=== PATIENT | male | born 1930 | race Caucasian/White ===

== ENCOUNTER → 2017-08-21 | Outpatient (CLI) | payer MEDICARE ==
[2017-08-21 16:53] LABS: Basophils % (A) 0 %; Eosinophils # (A) 0.6 k/uL (0-0.7); Eosinophils % (A) 6 %; HCT 40.5 % (39.0-53.0); Lymphocytes # (A) 2.3 k/uL (1.0-4.8); Lymphocytes % (A) 24 %; MCH 33.3 pg (25.0-35.0); MCHC 34.2 g/dL (31.0-37.0); MCV 97.5 fL (80.0-100.0); Mean Platelet Volume 6.7; Monocytes # (A) 0.5 k/uL (0-1.0); Monocytes % (A) 5 %; Neutrophils # (A) 6.1 k/uL (1.3-7.7); Neutrophils % (A) 63 %; Platelet Count 342 k/uL (150-450); Poikilocytosis Slight; RBC 4.15 m/uL (4.30-5.90); RDW 14.5 % (11.5-15.5); WBC 9.7 k/uL (3.8-10.6)
[2017-08-21 16:57] LABS: HGB 13.8 gm/dL (13.0-17.5)
== END | disposition home or self-care (01) ==
LOC: LABPAT 15:56
PROVIDERS: ATTEND Surgery
DX: Z01.818 Encounter for other preprocedural examination (principal); Z01.812 Encounter for preprocedural laboratory examination; D64.9 Anemia, unspecified; K43.2 Incisional hernia without obstruction or gangrene; F17.200 Nicotine dependence, unspecified, uncomplicated
CPT/HCPCS: 36415; 85025; 86850; 86900; 86901; 93005

== ENCOUNTER 2017-08-27 07:41 | Day surgery (SDC) | payer MEDICARE ==
[2017-08-22 09:01] VITALS: BMI 27.4
[~2017-08-27 07:41] MED LIST: HEPARIN SODIUM,PORCINE 5,000 UNIT/ML 1 ML VIAL SQ ONE; LACTATED RINGERS 1,000 ML IV SCH; LIDOCAINE 1% 20 ML VIAL (10MG/ML) FOR IV START INTRADERMA PRN; MORPHINE SULFATE 2 MG/ML SYRINGE IV PRN; ONDANSETRON ODT 4 MG TAB PO ONE; ceFAZolin IN SWFI 2 GM/20 ML SYRINGE IVP ONE
[2017-08-27] MEDS ORDERED: LACTATED RINGERS 1,000 ML IV ONE ×2 (09:10→09:59)
[2017-08-27] MEDS ORDERED: DEXAMETHASONE SOD PHOS (MDV) 100 MG/10 ML VIAL IVP ONE (09:11)
[2017-08-27] MEDS ORDERED: ONDANSETRON 4 MG/2 ML VIAL IVP ONE (09:11)
--- NOTE | 2017-08-27 09:13 | P.GSHP ---
History of Present Illness H&P Date: 08/27/17 Chief Complaint: Incisional hernia This is a 6-year-old male who's had problems with a recurrent recurrent incarcerated incisional hernia. Patient had a recent hospital admission with bowel obstruction. Patient presents today for laparoscopic robotic-assisted repair. Past Medical History Past Medical History: CVA/TIA, Hypertension, Neurologic Disorder Additional Past Medical History / Comment(s): HX POLIO, SISTER STATES TOLD HE HAS HAD 3 STROKES BUT PT WAS UNAWARE- NO PROBLEMS WITH AMBULATION. , PT WAS HOSPITALIZED 08/12-08/15/17 FOR NAUSEA, VOMITING & DIARRHEA., ON LIQUID AND SOFT FOODS SINCE DISCHARGED., INCISIONAL HERNIA., PT IS UNABLE TO READ OR WRITE ., LIVES ALONE. History of Any Multi-Drug Resistant Organisms: None Reported Past Surgical History: Cholecystectomy Additional Past Surgical History / Comment(s): EXPLORATORY LAP TO CHECK BOWEL ( 03/2014), Past Anesthesia/Blood Transfusion Reactions: No Reported Reaction Additional Past Anesthesia/Blood Transfusion Reaction / Comment(s): . Past Psychological History: Depression Additional Psychological History / Comment(s): . Smoking Status: Never smoker Past Alcohol Use History: None Reported Past Drug Use History: None Reported - Past Family History Father Family Medical History: CVA/TIA Mother Family Medical History: Myocardial Infarction ([place]) Medications and Allergies Home Medications Medication Instructions Recorded Confirmed Type Citalopram Hydrobromide [CeleXA] 20 mg PO DAILY 04/15/14 08/22/17 History Nitroglycerin Extended Release 6.5 mg PO TID 04/15/14 08/22/17 History [Nitro-Bid] Simvastatin [Zocor] 20 mg PO HS 04/15/14 08/22/17 History Multivitamins, Thera [Multivitamin 1 tab PO DAILY 08/12/17 08/22/17 History (formulary)] Amoxicillin/Potassium Clav 1 each PO Q12HR #14 tab 08/15/17 08/22/17 Rx [Augmentin 875-125 Tablet] Clopidogrel [Plavix] 75 mg PO DAILY #30 tab 08/15/17 08/22/17 Rx Famotidine [Pepcid] 20 mg PO DAILY #30 tablet 08/15/17 08/22/17 Rx Aspirin [Adult Low Dose Aspirin EC] 81 mg PO DAILY 08/22/17 08/22/17 History Allergies Allergy/AdvReac Type Severity Reaction Status Date / Time No Known Allergies Allergy Verified 08/22/17 08:40 Surgical - Exam Vital Signs Temp Pulse Resp BP Pulse Ox 97.8 F 62 18 124/69 98 08/27/17 09:07 08/27/17 09:07 08/27/17 09:07 08/27/17 09:07 08/27/17 09:07 - General well developed, no distress - Eyes PERRL - ENT normal pinna - Neck no masses - Respiratory normal expansion - Cardiovascular Rhythm: regular - Abdomen 5 cm incarcerated incisional hernia Abdomen: soft, non tender Assessment and Plan Assessment: Incarcerated incisional hernia. We'll perform laparoscopic robotic system repair.
[2017-08-27] MEDS ORDERED: SUCCINYLCHOLINE CHLORIDE 100 MG/5 ML SYR IV ONE (09:28)
[2017-08-27] MEDS ORDERED: ePHEDrine SULFATE/0.9% NACL/PF 50 MG/5 ML SYRINGE IV ONE (09:28)
[2017-08-27] MEDS ORDERED: GLYCOPYRROLATE 0.2 MG/ML 2 ML VIAL ONE (09:28)
[2017-08-27] MEDS ORDERED: PROPOFOL 10 MG/ML 20 ML VIAL IV ONE (09:28)
[2017-08-27] MEDS ORDERED: ROCURONIUM BROMIDE 10 MG/ML 10 ML VIAL IV ONE (09:28)
[2017-08-27] MEDS ORDERED: fentaNYL (PF) 50 MCG/ML 2 ML AMP ONE (09:28)
[2017-08-27] MEDS ORDERED: LIDOCAINE 1% INJ 10MG/ML (20 ML MDV) ONE (09:28)
[2017-08-27] MEDS ORDERED: NEOSTIGMINE 1 MG/ML 10 ML VIAL ONE (09:28)
[2017-08-27] MEDS ORDERED: BUPIVACAINE (PF) 0.25% 30 ML VIAL SQ ONE (09:50)
[2017-08-27] MEDS ORDERED: LIDOCAINE 1%-EPI 1:100,000 30 ML VIAL SQ ONE (10:35)
[2017-08-27 11:19] VITALS: TEMP 96.8
--- NOTE | 2017-08-27 11:27 | P.OP ---
Date of Procedure: 08/27/17 Preoperative Diagnosis: Incarcerated incisional hernia Postoperative Diagnosis: Incarcerated incisional hernia Procedure(s) Performed: Laparoscopic robotic-assisted repair of incarcerated incisional hernia Anesthesia: MATEUS Surgeon: Von Forman Estimated Blood Loss (ml): 20 Pathology: none sent Condition: stable Disposition: PACU Description of Procedure: The patient was placed on the operating table in the supine position. He received general anesthesia. His abdomen was prepped and draped usual fashion. Using a 5 mm optical trocar under direct visualization the peritoneal cavity was entered in the left upper quadrant. The abdomen was then insufflated. The laparoscope was placed back into the perineal cavity. Next a 8 mm robotic trocar was placed in the left lower quadrant and a 12 mm robotic trocar was placed in the left lateral position. The original 5 mm trocar was exchanged for a 8 mm robotic trocar. The patient's placed in the left side up position. And the patient was docked to the robot. The incisional hernia was visualized. Using hook cautery the peritoneum over the incisional hernia was excised. Using metastases months scissors the incarcerated small bowel was dissected free from the hernia. The fascial opening was repaired using 0V LOC suture. Next a piece of 10 x [address] light [address] mesh was placed into the. Cavity and secured with 2 OV lock suture. The patient was undocked the robot. The needles were retrieved. The fascia of the 12 mm trocar site was closed with 0 Ethibond suture. Skin was closed interrupted 3-0 Monocryl suture. Dermabond dressings was applied. Patient tolerated procedure well and was sent to recovery room stable condition.
[2017-08-27 11:59] VITALS: RESP 16
[2017-08-27 12:25] VITALS: BP 125/71; PULSE 94
== END 2017-08-27 13:03 | disposition home or self-care (01) ==
LOC: OR 07:41
PROVIDERS: ATTEND Surgery
DX: K43.0 Incisional hernia with obstruction, without gangrene (principal); I10 Essential (primary) hypertension; F32.9 Major depressive disorder, single episode, unspecified; I25.10 Atherosclerotic heart disease of native coronary artery without angina pectoris; Z86.73 Personal history of transient ischemic attack (TIA), and cerebral infarction without residual deficits; Z79.02 Long term (current) use of antithrombotics/antiplatelets; Z79.82 Long term (current) use of aspirin; Z79.899 Other long term (current) drug therapy
CPT/HCPCS: 49655; C1781; J1644; J2710; J2405; J2001; J3010; J1100; J0330; J2704; J0690; 86850; 86900; 86901

== ENCOUNTER 2020-01-22 12:36 | Observation (INO) | payer MEDICARE ==
[2020-01-22] MEDS ORDERED: SODIUM CHLORIDE 0.9% 1,000 ML IV STA (12:49)
--- NOTE | 2020-01-22 13:07 | ED ---
Weakness HPI - General Chief complaint: Neuro Symptoms/Deficit Stated complaint: Poss CVA Time Seen by Provider: 01/22/20 12:43 Source: patient, RN notes reviewed, old records reviewed Mode of arrival: ambulatory Limitations: no limitations - History of Present Illness Initial comments: This is a 9-year-old male presented today for evaluation, patient Dese for evaluation regards to weakness generalized weakness decreased activity level for last 2-3 days patient is very fatigued today. Afebrile, appetite is been mildly diminished. No recent change in medications. Patient is complaining of weakness in both legs and both arms MD Complaint: generalized weakness, lack of energy -: days(s) Location: generalized Severity: mild Severity scale (1-10): 3 Quality: constant Consistency: constant Improves with: none Worsens with: none Context: history of similar Associated Symptoms: denies other symptoms, loss of appetite, myalgias - Related Data Home Medications Medication Instructions Recorded Confirmed Citalopram Hydrobromide [CeleXA] 20 mg PO DAILY 04/15/14 08/22/17 Nitroglycerin Extended Release 6.5 mg PO TID 04/15/14 08/22/17 [Nitro-Bid] Simvastatin [Zocor] 20 mg PO HS 04/15/14 08/22/17 Multivitamins, Thera [Multivitamin 1 tab PO DAILY 08/12/17 08/22/17 (formulary)] Aspirin [Adult Low Dose Aspirin EC] 81 mg PO DAILY 08/22/17 08/22/17 Previous Rx's Medication Instructions Recorded Amoxicillin/Potassium Clav 1 each PO Q12HR #14 tab 08/15/17 [Augmentin 875-125 Tablet] Clopidogrel [Plavix] 75 mg PO DAILY #30 tab 08/15/17 Famotidine [Pepcid] 20 mg PO DAILY #30 tablet 08/15/17 Docusate [Colace] 100 mg PO BID #20 capsule 08/27/17 HYDROcodone/APAP 7.5-325MG [[place] 1 each PO Q4H PRN #30 tab 08/27/17 7.5] Allergies Allergy/AdvReac Type Severity Reaction Status Date / Time No Known Allergies Allergy Verified 01/22/20 12:38 Review of Systems ROS Statement: Those systems with pertinent positive or pertinent negative responses have been documented in the HPI. ROS Other: All systems not noted in ROS Statement are negative. Past Medical History Past Medical History: Hypertension, Neurologic Disorder Additional Past Medical History / Comment(s): polio History of Any Multi-Drug Resistant Organisms: None Reported Past Surgical History: Cholecystectomy Additional Past Surgical History / Comment(s): bowel x2 Past Anesthesia/Blood Transfusion Reactions: No Reported Reaction Additional Past Anesthesia/Blood Transfusion Reaction / Comment(s): pt taking nitro bid Past Psychological History: No Psychological Hx Reported Smoking Status: Never smoker Past Alcohol Use History: None Reported Past Drug Use History: None Reported - Past Family History Father Family Medical History: CVA/TIA Mother Family Medical History: Myocardial Infarction ([place]) General Exam Limitations: no limitations General appearance: alert, in no apparent distress Head exam: Present: atraumatic, normocephalic, normal inspection Eye exam: Present: normal appearance, PERRL, EOMI. Absent: scleral icterus, conjunctival injection, periorbital swelling ENT exam: Present: normal exam, mucous membranes moist Neck exam: Present: normal inspection. Absent: tenderness, meningismus, lymphadenopathy Respiratory exam: Present: normal lung sounds bilaterally. Absent: respiratory distress, wheezes, rales, rhonchi, stridor Cardiovascular Exam: Present: regular rate, normal rhythm, normal heart sounds. Absent: systolic murmur, diastolic murmur, rubs, gallop, clicks GI/Abdominal exam: Present: soft, normal bowel sounds. Absent: distended, tenderness, guarding, rebound, rigid Extremities exam: Present: normal inspection, full ROM, normal capillary refill. Absent: tenderness, pedal edema, joint swelling, calf tenderness Back exam: Present: normal inspection Neurological exam: Present: alert, oriented X3, CN II-XII intact Psychiatric exam: Present: normal affect, normal mood Skin exam: Present: warm, dry, intact, normal color. Absent: rash Course Vital Signs 01/22/20 01/22/20 01/22/20 12:39 13:07 14:44 Temperature 97.6 F Pulse Rate 103 H 87 80 Respiratory 18 18 18 Rate Blood Pressure 129/71 121/67 O2 Sat by Pulse 96 100 Oximetry 01/22/20 14:59 Temperature Pulse Rate 86 Respiratory 18 Rate Blood Pressure 121/67 O2 Sat by Pulse 99 Oximetry - Reevaluation(s) Reevaluation #1: 09/26/20 13:44 Medical record is reviewed Reevaluation #2: 01/22/20 15:08 Patient is diminished urine output here in the ER despite IV hydration Reevaluation #3: 01/22/20 15:08 Patient informed family informed results, questions answered - Consultations Consultation #1: Spoke with Dr. Jem mckeon for admission EKG Findings - EKG Comments: EKG Findings:: EKG shows NSR 93 IL 134 QRS 82 QTc 452 Medical Decision Making - Medical Decision Making 89 male DF for evaluation of weakness, profound weakness and dehydration here in the ER. No significant acute findings. Patient be admitted for hydration, PTOT - Lab Data Result diagrams: 01/22/20 12:55 01/22/20 12:55 Lab Results 01/22/20 01/22/20 01/22/20 Range/Units 12:55 12:55 12:55 WBC 11.2 H (3.8-10.6) k/uL RBC 4.80 (4.30-5.90) m/uL Hgb 15.3 (13.0-17.5) gm/dL Hct 46.3 (39.0-53.0) % MCV 96.6 (80.0-100.0) fL MCH 31.9 (25.0-35.0) pg MCHC 33.0 (31.0-37.0) g/dL RDW 13.3 (11.5-15.5) % Plt Count 351 (150-450) k/uL Neutrophils % 74 % Lymphocytes % 15 % Monocytes % 6 % Eosinophils % 3 % Basophils % 1 % Neutrophils # 8.3 H (1.3-7.7) k/uL Lymphocytes # 1.7 (1.0-4.8) k/uL Monocytes # 0.7 (0-1.0) k/uL Eosinophils # 0.3 (0-0.7) k/uL Basophils # 0.1 (0-0.2) k/uL PT 10.0 (9.0-12.0) sec INR 1.0 (<1.2) APTT 22.7 (22.0-30.0) sec Sodium 134 L (137-145) mmol/L Potassium 4.8 (3.5-5.1) mmol/L Chloride 99 (98-107) mmol/L Carbon Dioxide 23 (22-30) mmol/L Anion Gap 12 mmol/L BUN 21 H (9-20) mg/dL Creatinine 1.12 (0.66-1.25) mg/dL Est GFR (CKD-EPI)AfAm 67 (>60 ml/min/1.73 sqM) Est GFR (CKD-EPI)NonAf 58 (>60 ml/min/1.73 sqM) Glucose 114 H (74-99) mg/dL Plasma Lactic Acid [place] (0.7-2.0) mmol/L Calcium 9.2 (8.4-10.2) mg/dL Phosphorus 3.9 (2.5-4.5) mg/dL Magnesium 2.0 (1.6-2.3) mg/dL Total Bilirubin 1.1 (0.2-1.3) mg/dL AST 46 (17-59) U/L ALT 27 (4-49) U/L Alkaline Phosphatase 137 H (38-126) U/L Creatine Kinase 61 (55-170) U/L Troponin I (0.000-0.034) ng/mL NT-Pro-B Natriuret Pep pg/mL Total Protein 7.9 (6.3-8.2) g/dL Albumin 4.4 (3.5-5.0) g/dL 01/22/20 01/22/20 01/22/20 Range/Units 12:55 12:55 12:55 WBC (3.8-10.6) k/uL RBC (4.30-5.90) m/uL Hgb (13.0-17.5) gm/dL Hct (39.0-53.0) % MCV (80.0-100.0) fL MCH (25.0-35.0) pg MCHC (31.0-37.0) g/dL RDW (11.5-15.5) % Plt Count (150-450) k/uL Neutrophils % % Lymphocytes % % Monocytes % % Eosinophils % % Basophils % % Neutrophils # (1.3-7.7) k/uL Lymphocytes # (1.0-4.8) k/uL Monocytes # (0-1.0) k/uL Eosinophils # (0-0.7) k/uL Basophils # (0-0.2) k/uL PT (9.0-12.0) sec INR (<1.2) APTT (22.0-30.0) sec Sodium (137-145) mmol/L Potassium (3.5-5.1) mmol/L Chloride (98-107) mmol/L Carbon Dioxide (22-30) mmol/L Anion Gap mmol/L BUN (9-20) mg/dL Creatinine (0.66-1.25) mg/dL Est GFR (CKD-EPI)AfAm (>60 ml/min/1.73 sqM) Est GFR (CKD-EPI)NonAf (>60 ml/min/1.73 sqM) Glucose (74-99) mg/dL Plasma Lactic Acid [place] 1.9 (0.7-2.0) mmol/L Calcium (8.4-10.2) mg/dL Phosphorus (2.5-4.5) mg/dL Magnesium (1.6-2.3) mg/dL Total Bilirubin (0.2-1.3) mg/dL AST (17-59) U/L ALT (4-49) U/L Alkaline Phosphatase (38-126) U/L Creatine Kinase (55-170) U/L Troponin I <0.012 (0.000-0.034) ng/mL NT-Pro-B Natriuret Pep 95 pg/mL Total Protein (6.3-8.2) g/dL Albumin (3.5-5.0) g/dL - Radiology Data Radiology results: report reviewed (CT brain and chest x-ray negative for acute disease), image reviewed Disposition Clinical Impression: Altered mental status, Weakness, Dehydration Disposition: ADMITTED IP TO THIS [facility] Condition: Fair Is patient prescribed a controlled substance at d/c from ED?: No Referrals: Angel Del Valle MD [Primary Care Provider] - 1-2 days
[2020-01-22 13:17] LABS: Basophils # (A) 0.1 k/uL (0-0.2); Basophils % (A) 1 %; Eosinophils # (A) 0.3 k/uL (0-0.7); Eosinophils % (A) 3 %; HCT 46.3 % (39.0-53.0); HGB 15.3 gm/dL (13.0-17.5); Lymphocytes # (A) 1.7 k/uL (1.0-4.8); Lymphocytes % (A) 15 %; MCH 31.9 pg (25.0-35.0); MCV 96.6 fL (80.0-100.0); Mean Platelet Volume 6.6; Monocytes # (A) 0.7 k/uL (0-1.0); Monocytes % (A) 6 %; Neutrophils # (A) 8.3 k/uL (1.3-7.7); Neutrophils % (A) 74 %; Platelet Count 351 k/uL (150-450); RDW 13.3 % (11.5-15.5); WBC 11.2 k/uL (3.8-10.6)
[2020-01-22 13:22] LABS: Partial Thromboplastin Time 22.7 sec (22.0-30.0)
[2020-01-22 13:27] LABS: Albumin 4.4 g/dL (3.5-5.0); Calcium 9.2 mg/dL (8.4-10.2); Phosphorus 3.9 mg/dL (2.5-4.5); Potassium 4.8 mmol/L (3.5-5.1); Total Bilirubin 1.1 mg/dL (0.2-1.3); Total Protein 7.9 g/dL (6.3-8.2)
--- NOTE | 2020-01-22 13:50 | XR ---
EXAMINATION TYPE: XR chest 2V DATE OF EXAM: 01/22/2020 COMPARISON: Chest x-ray August 12, 2017. HISTORY: Weakness. TECHNIQUE: Frontal and lateral views of the chest are obtained. FINDINGS: Low lung volumes are present. There is more prominent cardiomegaly with increased intersti tial prominence bilaterally. No pleural effusion or pneumothorax is evident. The osseous structures are demineralized. IMPRESSION: More prominent cardiomegaly and interstitial prominence suggesting mild to moderate inte rstitial edema. Suspect CHF exacerbation. Correlate clinically.
[2020-01-22] MEDS ORDERED: SODIUM CHLORIDE 0.9% 2,000 ML IV ONE (15:01)
[2020-01-22] MEDS ORDERED: SODIUM CHLORIDE 0.9% 1,000 ML IV ONE (15:07)
--- NOTE | 2020-01-22 15:28 | CT ---
EXAMINATION TYPE: CT brain wo con DATE OF EXAM: 01/22/2020 COMPARISON: None HISTORY: altered mental status CT DLP: 1099.4 mGycm Automated exposure control for dose reduction was used. There is cerebral atrophy. There is no mass effect nor midline shift. There is no sign of intracrania l hemorrhage. Calvarium is intact. IMPRESSION: Cerebral atrophy more noticeable in the right frontoparietal region. No acute intracranial abnormalit y. No change.
[2020-01-22 16:56] LABS: Appearance,Urine Clear (Clear); Bilirubin,Urine Negative (Negative); Blood,Urine Trace (Negative); Color,Urine Yellow; Glucose,Urine (UA) Negative (Negative); Ketones,Urine 1+ (Negative); Leukocyte Esterase,Urine Negative (Negative); Mucus,Urine Rare /hpf; Nitrite,Urine Negative (Negative); PH, Urine 6.5 (5.0-8.0); Protein,Urine Negative (Negative); RBC,Urine 6 /hpf (0-5); Specific Gravity,Urine 1.007 (1.001-1.035); Urobilinogen,Urine <2.0 mg/dL (<2.0); WBC,Urine 3 /hpf (0-5)
[2020-01-22] MEDS: NITROGLYCERIN EXTENDED RELEASE 6.5 MG CAPSULE.ER PO SCH (21:08)
[2020-01-23] MEDS ORDERED: ATORVASTATIN 10 MG TAB PO SCH (09:00)
[2020-01-23] MEDS: amLODIPine 5 MG TAB PO SCH (09:03)
[2020-01-23] MEDS: ASPIRIN 81 MG PO SCH (09:03)
[2020-01-23] MEDS: MULTIVITAMINS, THERA 1 EACH TAB PO SCH (09:04)
[2020-01-23] MEDS: CLOPIDOGREL 75 MG TAB PO SCH (09:04)
[2020-01-23] MEDS: NITROGLYCERIN EXTENDED RELEASE 6.5 MG CAPSULE.ER PO SCH ×3 (09:04→20:27)
[2020-01-23] MEDS: CITALOPRAM HYDROBROMIDE 20 MG TAB PO SCH (09:04)
[2020-01-23 10:28] LABS: Basophils % (A) 0 %; Eosinophils # (A) 0.3 k/uL (0-0.7); Eosinophils % (A) 3 %; HCT 38.9 % (39.0-53.0); HGB 12.9 gm/dL (13.0-17.5); Lymphocytes # (A) 0.9 k/uL (1.0-4.8); Lymphocytes % (A) 10 %; MCH 31.9 pg (25.0-35.0); MCHC 33.3 g/dL (31.0-37.0); MCV 95.9 fL (80.0-100.0); Mean Platelet Volume 6.9; Monocytes # (A) 0.5 k/uL (0-1.0); Monocytes % (A) 6 %; Neutrophils # (A) 7.4 k/uL (1.3-7.7); Neutrophils % (A) 80 %; Platelet Count 290 k/uL (150-450); RBC 4.05 m/uL (4.30-5.90); RDW 13.3 % (11.5-15.5); WBC 9.2 k/uL (3.8-10.6)
[2020-01-23 10:36] LABS: Albumin 3.2 g/dL (3.5-5.0); Calcium 8.3 mg/dL (8.4-10.2); Potassium 4.1 mmol/L (3.5-5.1); Total Bilirubin 0.7 mg/dL (0.2-1.3); Total Protein 6.1 g/dL (6.3-8.2)
--- NOTE | 2020-01-23 14:05 | P.HPIM ---
History of Present Illness H&P Date: 01/23/20 89 years old male patient of Dr. 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 It appears patient has been able to make his own decision but brother and sister helps make decision for the patient as it takes longer for the patient to process the information. Spoke to the sister in length over the phone, patient is functionally active and uses no aids like cane or weight walker at home. Patient sister has noted increased weakness in his right arm and right lower extremity and having difficulty making a fist or hold anything with his right hand. Patient is not able to provide a good history and no family members at bedside it is difficult to assess if patient has any remnant weakness from polio. On speaking to the sister it appears that polio had not affected any of his extremity and patient is very functionally independent at home. Family members coming intermittently to watch over him. Since patient was not able to come out of bed by himself the sister got suspicion and brought the patient to the ER. . He denies any difficulty with walking or any falls at home. On evaluation patient has a temp of 98.2 pulse 75 respiratory rate 17 and blood pressure 127/70 with oxygen saturation 96% on 2 L. On assessment of patient's blood work from yesterday patient had a leukocyte of 11.2 which improved to 9.2 today. Hemoglobin is 15.3 improved to 12.9 appears to be secondary to hemodilution. Platelets 351 improved to 90. Sodium was 134 decreased to 132. Creatinine was 1.12 elevated BUN of 21 improved to creatinine of 0.87. ProBNP was 273. UA was negative for any infection. Chest x-ray did show some congestion and infiltrates concerning for CHF exacerbation. Patient denies any coughing or shortness of breath and is currently on room air on examination. Patient did receive 2 L of IV fluid in the ER. Further IV fluids were discontinued to prevent overload of fluids. Due to concern of weakness in the right upper extremity neurology is consulted, MRI and MRA of the head or dered. Echocardiogram ordered brain CT done in the ER suggestive of cerebral atrophy more prominent in the right frontoparietal region with no acute intracranial change. Patient's sister is unaware why patient is on Plavix, states he had some confusion 4 years ago but no documented history of stroke present Review of Systems Constitutional: Denies chills, Denies fever, endorses lethargy, Denies poor appetite, Denies weight loss Eyes: denies decreased vision, denies diplopia, denies discharge, denies pain Ears: deny: decreased hearing Ears, nose, mouth and throat: Denies dental pain, Denies headache, Denies nasal discharge, Denies nose pain Cardiovascular: Denies chest pain, Denies decreased exercise tolerance, Denies edema, Denies high blood pressure, Denies irregular heart beat, Denies palpitations, Denies paroxysmal nocturnal dyspnea, Denies rapid heart beat, Denies shortness of breath Respiratory: Denies congestion, Denies cough, Denies cough with sputum, Denies dyspnea, Denies home oxygen, Denies wheezing Gastrointestinal: Denies abdominal pain, Denies change in bowel habits, Denies coffee ground emesis, Denies early satiety, Denies excessive gas, Denies heartburn, Denies hematemesis, Denies hematochezia, Denies loss of appetite, Denies nausea, Denies vomiting Genitourinary: Denies dysuria, Denies flank pain, Denies kidney stones, Denies menorrhagia, Denies urgency, Denies urinary frequency Musculoskeletal: Unsteady gait, Denies limitation of motion, Denies morning stiffness, Denies muscle cramps Integumentary: Denies rash, Denies wounds, Denies brittle nails, Denies change in hair/nails, Denies darkening of skin Neurological: Endorses balance difficulties, Denies change in speech, Denies double vision, Denies loss of vision, endorses motor disturbance, Denies numbness, Denies paralysis, Denies paresthesias, Denies seizures Psychiatric: Denies anxiety, Denies depression Endocrine: Denies excessive sweating, Denies excessive thirst, Denies high blood sugars, Denies palpitations Hematologic/Lymphatic: Denies easy bruising, Denies lymphadenopathy Past Medical History Past Medical History: CVA/TIA, Hypertension, Neurologic Disorder Additional Past Medical History / Comment(s): polio History of Any Multi-Drug Resistant Organisms: None Reported Past Surgical History: Cholecystectomy Additional Past Surgical History / Comment(s): bowel x2 Past Anesthesia/Blood Transfusion Reactions: No Reported Reaction Additional Past Anesthesia/Blood Transfusion Reaction / Comment(s): pt taking nitro bid Past Psychological History: No Psychological Hx Reported Additional Psychological History / Comment(s): Patient lives alone, sister visits in the morning, brother visits at night sister does grocery shopping for the patient Smoking Status: Never smoker Past Alcohol Use History: None Reported Past Drug Use History: None Reported - Past Family History Father Family Medical History: CVA/TIA Mother Family Medical History: Myocardial Infarction ([place]) Medications and Allergies Home Medications Medication Instructions Recorded Confirmed Type Citalopram Hydrobromide [CeleXA] 20 mg PO DAILY 04/15/14 01/22/20 History Nitroglycerin Extended Release 6.5 mg PO TID 04/15/14 01/22/20 History [Nitro-Bid] Simvastatin [Zocor] 20 mg PO DAILY 04/15/14 01/22/20 History Multivitamins, Thera [Multivitamin 1 tab PO DAILY 08/12/17 01/22/20 History (formulary)] Clopidogrel [Plavix] 75 mg PO DAILY #30 tab 08/15/17 01/22/20 Rx Aspirin [Adult Low Dose Aspirin EC] 81 mg PO DAILY 08/22/17 01/22/20 History Docusate [Colace] 100 mg PO BID #20 capsule 08/27/17 01/22/20 Rx amLODIPine [Norvasc] 5 mg PO DAILY 01/22/20 01/22/20 History Allergies Allergy/AdvReac Type Severity Reaction Status Date / Time No Known Allergies Allergy Verified 01/22/20 16:10 Physical Exam Vitals: Vital Signs Temp Pulse Pulse Resp BP BP Pulse Ox 01/23/20 09:00 98.6 F 81 16 117/70 97 01/23/20 04:45 98.2 F 75 17 127/70 96 01/22/20 20:50 98 F 71 18 130/80 99 01/22/20 16:00 98 F 83 18 137/71 100 01/22/20 15:34 97.6 F 80 18 121/74 100 01/22/20 15:12 80 18 121/74 100 01/22/20 14:59 86 18 121/67 99 01/22/20 14:44 80 18 121/67 100 01/22/20 13:07 87 18 129/71 96 01/22/20 12:39 97.6 F 103 H 18 Intake and Output 01/22/20 01/23/20 01/23/20 22:59 06:59 14:59 Intake Total 400 200 Balance 400 200 Intake: Intake, IV Titration 400 Amount Sodium Chloride 0.9% 1, 400 000 ml @ 100 mls/hr IV . Q10H ONE Rx#:[id number] Oral 200 Other: Voiding Method Toilet Toilet Toilet Urinal Urinal Urinal Diaper Diaper Diaper Incontinent Incontinent Incontinent # Voids 1 1 1 # Bowel Movements 1 1 Weight 72.575 kg - Constitutional General appearance: Keeps his eyes down, answers yes to every question cooperative, no acute distress, obese - EENT Eyes: anicteric sclerae, PERRLA, normal appearance ENT: Hard of hearing - Neck Neck: no lymphadenopathy, normal ROM, no other, no rigidity, no stridor, no thyromegaly - Respiratory Respiratory: bilateral: CTA, negative: diminished, dullness, rales, rhonchi - Cardiovascular Rhythm: regular Heart sounds: normal: S1, S2 Abnormal Heart Sounds: 2 / 6 systolic murmur, no diastolic murmur, no rub, no S3 Gallop, no S4 Gallop, no click, no other - Gastrointestinal General gastrointestinal: normal bowel sounds, soft nontender - Integumentary Integumentary: no rash - Neurologic Neurologic: Facial droop noted on the right, hand inbound sales consultant reduced on the right, patient is unable to make a fist on the right, is able to lift on his extremity denies any numbness. - Musculoskeletal Musculoskeletal: gait unsteady , strength equal bilaterally - Psychiatric Psychiatric: A&O x's 1, unable to tell month or year, is able to tell where he is on multiple attempts .appropriate affect Results CBC & Chem 7: 01/23/20 10:01 01/23/20 10:01 Labs: Abnormal Lab Results - Last 24 Hours (Table) 01/22/20 01/22/20 01/22/20 Range/Units 12:55 12:55 16:40 WBC 11.2 H (3.8-10.6) k/uL Neutrophils # 8.3 H (1.3-7.7) k/uL Sodium 134 L (137-145) mmol/L BUN 21 H (9-20) mg/dL Glucose 114 H (74-99) mg/dL Alkaline Phosphatase 137 H (38-126) U/L Urine Ketones 1+ H (Negative) Urine Blood Trace H (Negative) Urine RBC 6 H (0-5) /hpf Urine Mucus Rare H (None) /hpf Thrombosis Risk Factor Assmnt - DVT/VTE Prophylaxis DVT/VTE Prophylaxis: Pharmacologic Prophylaxis ordered - Choose All That Apply Each Risk Factor Represents 3 Points: Age 75 years or older Thrombosis Risk Factor Assessment Total Risk Factor Score: 3 Thrombosis Risk Factor Assessment Level: Moderate Risk Assessment and Plan Plan: #1 Generalized weakness with loss of inbound sales consultant on the right upper extremity. Right lower extremity weakness improved Rule out stroke CT head negative for any new intracranial abnormality does have cerebral atrophy more prominent on the right frontoparietal region. We will patient on aspirin and atorvastatin. Continue Plavix 75 mg by mouth daily. No previous history of stroke unclear why patient is on Plavix. Please atorvastatin to 40 mg by mouth daily. MRI head and MRA head and neck without contrast ordered. Neurology consult. Systolic blood pressure goal less than 220. Echocardiogram ordered #2 hypertension controlled on Norvasc 5 mg by mouth daily #3Hyperlipidemia hold simvastatin place patient on atorvastatin milligrams by mouth daily #4 constipation stool softeners can be started #5 mild cognitive impairment patient's baseline is a very young age. Family helps make a decision for the patient. No power of ip technology transactions attorney present. #6 acute kidney injury likely dehydration improved with IV fluids. Chest x-ray with mild congestion only for the IV fluids #7 anemia normocytic normochromic likely hemodilution. CBC tomorrow #8 mild protein malnutrition, currently on regular diet continuing ensure with meals #9 history of incarceration of the ventral hernia repaired by Dr. Forman #10 DVT prophylaxis with heparin every 12 #11 GI prophylaxis with Pepcid 20 mg by mouth daily #12 CODE STATUS full code discussed with sister #13 Generalized debility PTOT consult placed
[2020-01-23] MEDS: HEPARIN SODIUM,PORCINE 5,000 UNIT/ML 1 ML VIAL SQ SCH (20:27)
--- NOTE | 2020-01-24 07:43 | P.PN ---
Subjective 89 years old male patient of Dr. 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 It appears patient has been able to make his own decision but brother and sister helps make decision for the patient as it takes longer for the patient to process the information. Spoke to the sister in length over the phone, patient is functionally active and uses no aids like cane or weight walker at home. Patient sister has noted increased weakness in his right arm and right lower extremity and having difficulty making a fist or hold anything with his right hand. Patient is not able to provide a good history and no family members at bedside it is difficult to assess if patient has any remnant weakness from polio. On speaking to the sister it appears that polio had not affected any of his extremity and patient is very functionally independent at home. Family members coming intermittently to watch over him. Since patient was not able to come out of bed by himself the sister got suspicion and brought the patient to the ER. . He denies any difficulty with walking or any falls at home. On evaluation patient has a temp of 98.2 pulse 75 respiratory rate 17 and blood pressure 127/70 with oxygen saturation 96% on 2 L. On assessment of patient's blood work from yesterday patient had a leukocyte of 11.2 which improved to 9.2 today. Hemoglobin is 15.3 improved to 12.9 appears to be secondary to hemodilution. Platelets 351 improved to 90. Sodium was 134 decreased to 132. Creatinine was 1.12 elevated BUN of 21 improved to creatinine of 0.87. ProBNP was 273. UA was negative for any infection. Chest x-ray did show some congestion and infiltrates concerning for CHF exacerbation. Patient denies any coughing or shortness of breath and is currently on room air on examination. Patient did receive 2 L of IV fluid in the ER. Further IV fluids were discontinued to prevent overload of fluids. Due to concern of weakness in the right upper extremity neurology is consulted, MRI and MRA of the head ordered. Echocardiogram ordered brain CT done in the ER suggestive of cerebral atrophy more prominent in the right frontoparietal region with no acute intracranial change. Patient's sister is unaware why patient is on Plavix, states he had some confusion 4 years ago but no documented history of stroke present 01/23: Patient evaluated at the bedside. Patient still has increased weakness in his right arm and right lower extremity. Neurology is on consult, carotid ultrasound was completed and showed no significant stenosis, echocardiogram show s ejection fraction of 55%, mild mitral regurgitation, no pericardial effusion. Cervical spine x-ray was ordered and showed severe multilevel degenerative disc disease most marked at levels C3 through C6 with multilevel foraminal encroachment. MRI is pending, will continue on Plavix. Will repeat UA with reflex to culture since first UA showed +1 Ketones, trace blood and RBC of 6. Vital signs are stable ,he's afebrile 98.6, heart rate 57, respiratory 14, blood pressure 108/63, 94% on room air. Objective - Vital Signs Vital signs: Vital Signs Temp 97.8 F 01/24/20 04:18 Pulse 65 01/24/20 04:18 Resp 17 01/24/20 04:18 BP 100/60 01/24/20 04:18 Pulse Ox 97 01/24/20 04:18 Intake & Output 01/23/20 01/24/20 01/24/20 18:59 06:59 18:59 Intake Total 400 Balance 400 Intake: Oral 400 Other: Voiding Method Toilet Toilet Urinal Diaper Diaper Incontinent Incontinent # Voids 3 1 # Bowel Movements 1 - Exam - Constitutional General appearance: Keeps his eyes down, answers yes to every question cooperative, no acute distress, obese - EENT Eyes: anicteric sclerae, PERRLA, normal appearance ENT: Hard of hearing - Neck Neck: no lymphadenopathy, normal ROM, no other, no rigidity, no stridor, no thyromegaly - Respiratory Respiratory: bilateral: CTA, negative: diminished, dullness, rales, rhonchi - Cardiovascular Rhythm: regular Heart sounds: normal: S1, S2 Abnormal Heart Sounds: 2 / 6 systolic murmur, no diastolic murmur, no rub, no S3 Gallop, no S4 Gallop, no click, no other - Gastrointestinal General gastrointestinal: normal bowel sounds, soft nontender - Integumentary Integumentary: no rash - Neurologic Neurologic: Facial droop noted on the right, hand recreation establishment manager reduced on the right, patient is unable to make a fist on the right, is able to lift on his extremity denies any numbness - Musculoskeletal Musculoskeletal: gait unsteady , strength equal bilaterally - Psychiatric Psychiatric: A&O x's 1, unable to tell month or year, is able to tell where he is on multiple attempts .appropriate affect - Labs CBC & Chem 7: 01/24/20 07:38 01/24/20 07:38 Labs: Abnormal Lab Results - Last 24 Hours (Table) 01/23/20 01/23/20 01/23/20 Range/Units 10:01 10:01 10:01 RBC 4.05 L (4.30-5.90) m/uL Hgb 12.9 L (13.0-17.5) gm/dL Hct 38.9 L (39.0-53.0) % Lymphocytes # 0.9 L (1.0-4.8) k/uL Sodium 132 L (137-145) mmol/L Glucose 122 H (74-99) mg/dL Calcium 8.3 L (8.4-10.2) mg/dL Total Protein 6.1 L (6.3-8.2) g/dL Albumin 3.2 L (3.5-5.0) g/dL Procalcitonin 0.17 H (0.02-0.09) ng/mL Assessment and Plan Plan: #1 Generalized weakness with loss of recreation establishment manager on the right upper extremity. Right lower extremity weakness improved Rule out stroke CT head negative for any new intracranial abnormality does have cerebral atrophy more prominent on the right frontoparietal region. We will patient on aspirin and atorvastatin. Continue Plavix 75 mg by mouth daily. No previous history of stroke unclear why patient is on Plavix. Please atorvastatin to 40 mg by mouth daily. MRI head and MRA head and neck without contrast ordered. Neurology consult. Systolic blood pressure goal less than 220. Echocardiogram ordered #2 hypertension controlled on Norvasc 5 mg by mouth daily #3Hyperlipidemia hold simvastatin place patient on atorvastatin milligrams by mouth daily #4 constipation stool softeners can be started #5 mild cognitive impairment patient's baseline is a very young age. Family helps make a decision for the patient. No power of securities attorney present. #6 acute kidney injury likely dehydration improved with IV fluids. Chest x-ray with mild congestion only for the IV fluids #7 anemia normocytic normochromic likely hemodilution. CBC tomorrow #8 mild protein malnutrition, currently on regular diet continuing ensure with meals #9 history of incarceration of the ventral hernia repaired by Dr. Forman #10 DVT prophylaxis with heparin every 12 #11 GI prophylaxis with Pepcid 20 mg by mouth daily #12 CODE STATUS full code discussed with sister #13 Generalized debility PT/OT consult placed The above impression and plan of care have been discussed and directed by signing physician. Britney Hurst nurse practitioner acting as scribe for signing physician.
[2020-01-24 08:39] LABS: Basophils % (A) 1 %; Eosinophils # (A) 0.4 k/uL (0-0.7); Eosinophils % (A) 6 %; HCT 37.7 % (39.0-53.0); HGB 12.6 gm/dL (13.0-17.5); Lymphocytes # (A) 1.2 k/uL (1.0-4.8); Lymphocytes % (A) 19 %; MCH 32.2 pg (25.0-35.0); MCHC 33.3 g/dL (31.0-37.0); MCV 96.5 fL (80.0-100.0); Mean Platelet Volume 6.7; Monocytes # (A) 0.3 k/uL (0-1.0); Monocytes % (A) 5 %; Neutrophils # (A) 4.1 k/uL (1.3-7.7); Neutrophils % (A) 68 %; Platelet Count 265 k/uL (150-450); RDW 13.2 % (11.5-15.5); WBC 6.1 k/uL (3.8-10.6)
[2020-01-24] MEDS: ATORVASTATIN 40 MG TAB PO SCH (08:51)
[2020-01-24] MEDS: CITALOPRAM HYDROBROMIDE 20 MG TAB PO SCH (08:51)
[2020-01-24] MEDS: NITROGLYCERIN EXTENDED RELEASE 6.5 MG CAPSULE.ER PO SCH ×3 (08:51→20:56)
[2020-01-24] MEDS: ASPIRIN 81 MG PO SCH (08:52)
[2020-01-24] MEDS: CLOPIDOGREL 75 MG TAB PO SCH (08:52)
[2020-01-24] MEDS: FAMOTIDINE 20 MG TAB PO SCH (08:52)
[2020-01-24] MEDS: HEPARIN SODIUM,PORCINE 5,000 UNIT/ML 1 ML VIAL SQ SCH ×2 (08:52→20:56)
[2020-01-24] MEDS: MULTIVITAMINS, THERA 1 EACH TAB PO SCH (08:52)
[2020-01-24] MEDS: amLODIPine 5 MG TAB PO SCH (08:52)
[2020-01-24 09:02] LABS: Calcium 8.1 mg/dL (8.4-10.2); Total Bilirubin 0.6 mg/dL (0.2-1.3); Total Protein 5.9 g/dL (6.3-8.2)
--- NOTE | 2020-01-24 09:54 | XR ---
EXAMINATION TYPE: XR cervical spine comp DATE OF EXAM: 01/24/2020 COMPARISON: NONE HISTORY: Pain TECHNIQUE: Four views are submitted. FINDINGS: The odontoid is intact. There are no compression deformities. The prevertebral soft tissue structur es are within normal limits. Diffuse osteopenia with hypertrophic and degenerative change of the spi ne and severe changes at levels C3-C6 with foraminal encroachment at virtually all levels. Cervical t horacic junction is limited due to positioning. IMPRESSION: 1. Severe multilevel degenerative disc disease most marked at levels C3-C6 with multilevel foraminal encroachment.
--- NOTE | 2020-01-24 10:00 | US ---
EXAMINATION TYPE: US carotid duplex BILAT DATE OF EXAM: 01/24/2020 COMPARISON: NONE CLINICAL HISTORY: CVA. CVA EXAM MEASUREMENTS: RIGHT: Peak Systolic Velocity (PSV) cm/sec ----- Right CCA: 72.5 ----- Right ICA: 106.4 ----- Right ECA: 141.7 ICA/CCA ratio: 1.5 RIGHT: End Diastole cm/sec ----- Right CCA: 14.4 ----- Right ICA: 25.7 ----- Right ECA: 0 LEFT: Peak Systolic Velocity (PSV) cm/sec ----- Left CCA: 62.4 ----- Left ICA: 92.9 ----- Left ECA: 72.6 ICA/CCA ratio: 1.5 LEFT: End Diastole cm/sec ----- Left CCA: 14.4 ----- Left ICA: 30.4 ----- Left ECA: 0 VERTEBRALS (direction of flow): Right Vertebral: Antegrade Left Vertebral: Antegrade Rhythm: Normal No significant stenosis seen IMPRESSION: 1. No significant hemodynamic stenosis identified. Criteria for Assigning % of Stenosis / Diameter reduction (Estimation based on the indirect measurements of the internal carotid artery velocities (ICA PSV). 1. Normal (no stenosis)=ICA PSV < 125 cm/s: ratio < 2.0: ICA EDV<40 cm/s. 2. Less than 50% stenosis=ICA PSV < 125 cm/s: ratio < 2.0: ICA EDV<40 cm/s. 3. 50 to 69% stenosis=ICA PSV of 125 to 230 cm/s: ration 2.0 ? 4.0: ICA EDV 40-100 cm/s. 4. Greater than 70% stenosis to near occlusion= ICA PSV > 230 cm/s: ratio > 4.0: ICA EDV > 100 cm/s. 5. Near occlusion= ICA PSV velocities may be low or undetectable: variable ratio and ICA EDV. 6. Total occlusion=unable to detect flow.
--- NOTE | 2020-01-24 10:56 | P.CNNES ---
History of Present Illness Consult date: 01/24/20 Requesting physician: Roma Benjamin Reason for Consult: Concern for stroke: Right sided weakness History of Present Illness: This is an 89-year-old gentleman with medical history of mild cognitive impairment, polio and a young age, hypertension that presented to the emergency department on 01/22/2020 for generalized weakness and decreased activity for the last 2-3 days prior to presentation. Patient is unable to provide history, so history was obtained from medical records. It appears the patient has been able to make his own decisions about brother and sister help make decisions for the patient is a takes long for the patient to process information. The primary team contacted the patient's sister and it is noted that the patient uses no aids for ambulation. Seems the patient is very functional the independent at home. The patient family intermittently at visit the patient at his home. The sister noted that the patient has increased weakness in the right upper and lower extremity. As well as he is having difficulty making a fist or holding things on his right hand. Per sister he doesn't have any extremity weakness as a result of the polio. The patient denies any difficulty with walking or any falls at home. Patient's sister is unaware why he is on Plavix, states he had some confusion for years ago but no documented the history of stroke. Workup in the hospital consisted of: CT of the head which was reported as cerebral atrophy more noticeable on the right frontal parietal region. No acute intracranial abnormality. I personally reviewed it and I do agree there is no acute ischemia or hemorrhage. 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 EKG was reported as normal sinus rhythm. Ventricle rate of 93. Normal EKG. Initial white blood cell was 11.2. Repeated was 9.2. Of note patient had an EEG on 2017 for altered mental status and the our system and it was reported as normal. Review of Systems Review of system: Limited because of the patient's cooperation. The pertinent positive and negative as per HPI. Past Medical History Past Medical History: CVA/TIA, Hypertension, Neurologic Disorder Additional Past Medical History / Comment(s): polio History of Any Multi-Drug Resistant Organisms: None Reported Past Surgical History: Cholecystectomy Additional Past Surgical History / Comment(s): bowel x2 Past Anesthesia/Blood Transfusion Reactions: No Reported Reaction Additional Past Anesthesia/Blood Transfusion Reaction / Comment(s): pt taking n itro bid Past Psychological History: No Psychological Hx Reported Additional Psychological History / Comment(s): Patient lives alone, sister visits in the morning, brother visits at night sister does grocery shopping for the patient Smoking Status: Never smoker Past Alcohol Use History: None Reported Past Drug Use History: None Reported - Past Family History Father Family Medical History: CVA/TIA Mother Family Medical History: Myocardial Infarction (ID) Medications and Allergies Home Medications Medication Instructions Recorded Confirmed Type Citalopram Hydrobromide [CeleXA] 20 mg PO DAILY 04/15/14 01/22/20 History Nitroglycerin Extended Release 6.5 mg PO TID 04/15/14 01/22/20 History [Nitro-Bid] Simvastatin [Zocor] 20 mg PO DAILY 04/15/14 01/22/20 History Multivitamins, Thera [Multivitamin 1 tab PO DAILY 08/12/17 01/22/20 History (formulary)] Clopidogrel [Plavix] 75 mg PO DAILY #30 tab 08/15/17 01/22/20 Rx Aspirin [Adult Low Dose Aspirin EC] 81 mg PO DAILY 08/22/17 01/22/20 History Docusate [Colace] 100 mg PO BID #20 capsule 08/27/17 01/22/20 Rx amLODIPine [Norvasc] 5 mg PO DAILY 01/22/20 01/22/20 History Allergies Allergy/AdvReac Type Severity Reaction Status Date / Time No Known Allergies Allergy Verified 01/22/20 16:10 Physical Examination - Vital Signs Vital Signs: Vital Signs Temp Pulse Resp BP Pulse Ox 01/24/20 04:18 97.8 F 65 17 100/60 97 01/23/20 19:40 97.9 F 72 18 104/52 95 01/23/20 15:00 97.8 F 77 16 119/73 96 01/23/20 09:00 98.6 F 81 16 117/70 97 Intake and Output 01/23/20 01/24/20 01/24/20 22:59 06:59 14:59 Intake Total 200 Balance 200 Intake: Oral 200 Other: Voiding Method Toilet Toilet Diaper Diaper Incontinent Incontinent # Voids 2 1 GENERAL: The patient is lying in bed and is not in acute distress. CHEST: The heart rate is regular rate rhythm. No murmurs to auscultation. No carotid bruit bilaterally. LUNG: Clear to auscultation bilaterally no wheezing noted throughout. Not labored breathing. ABDOMEN/GI: Bowel sounds present in all 4 quadrants. No tenderness to palpation throughout. NEUROLOGICAL: Higher mental function: The patient is awake, alert, oriented to self and place but not time. Patient is following simple commands. No aphasia and no neglect. Cranial nerves: The pupils are round, equal and reactive to light and accommodation. Visual jordan are full to confrontation throughout. Extraocular movement is intact no nystagmus is noted. Facial sensation is normal to touch throughout. The facial strength is right lower facial weakness. It seem possibly he had a scare tissue over the right medial side of nose. Hearing is somewhat hard of hearing. Tongue is midline and moved [id number] without any difficulty. No dysarthria is noted. Shoulder shrug is normal bilaterally. Motor: Gait is normal. The strength in upper extremities was hard to assess because of patient cooperation but strength on right hand wharf worker and forearm extensor is 5-. Otherwise 5/5 throughout. Normal tone and bulk. Cerebellum: Normal finger to nose bilaterally. Sensation: Sensation is normal to touch throughout. Reflexes (right/left): Hard to assess because of patient's cooperation. Plantars are downgoing bilaterally. Results AST of 33, ALTs of 25. Urine analysis was the urine appears clear, urine bilirubin as negative, urine nitrate was negative, urine leukocyte esterase was negative, urine white blood cell is 3. It does not seem that the patient has urine tract infection from the UA. PT of 10.0, INR 1.0, PTT of 22.7. Vitamin B12 was 456 on the 07/2017. - Laboratory Findings CBC and BMP: 01/24/20 07:38 01/24/20 07:38 Abnormal Lab Findings: Abnormal Labs 01/22/20 01/22/20 01/22/20 12:55 12:55 16:40 WBC 11.2 H RBC Hgb Hct Neutrophils # 8.3 H Lymphocytes # Sodium 134 L BUN 21 H Glucose 114 H Calcium Alkaline Phosphatase 137 H Total Protein Albumin Procalcitonin Urine Ketones 1+ H Urine Blood Trace H Urine RBC 6 H Urine Mucus Rare H 01/23/20 01/23/20 01/23/20 10:01 10:01 10:01 WBC RBC 4.05 L Hgb 12.9 L Hct 38.9 L Neutrophils # Lymphocytes # 0.9 L Sodium 132 L BUN Glucose 122 H Calcium 8.3 L Alkaline Phosphatase Total Protein 6.1 L Albumin 3.2 L Procalcitonin 0.17 H Urine Ketones Urine Blood Urine RBC Urine Mucus Assessment and Plan Assessment: Right upper extremity weakness and right lower facial weakness. Possibly stroke. Questionable right frontal temporal atrophy which seems old. HISTORY of polio Mild cognitive impairment Hx of Hypertension Plan: MRI the brain MRA head and neck was ordered by the primary team. 2-D echo is pending. Lipid profile: T, Cholestrol 110, LDL 64 and HDL: 29. Cardiac monitoring Patient is currently on 75 mg of Plavix(home medication) and aspirin 81 mg of aspirin was added during his hospital stay. Patient is also on Lipitor 40 mg daily. Hemoglobin A1c is pending. TSH: 2.72 PT OT are consulted Thank you for the consult. Jesus Bello M.D. Neuro-hospitalist Time with Patient: Greater than 30
--- NOTE | 2020-01-24 11:00 | ECHOF ---
Referral Reason:CHF MEASUREMENTS -------- HEIGHT: 157.5 cm WEIGHT: 72.6 kg BP: RVIDd: 3.1 cm (< 3.3) IVSd: 0.9 cm (0.6 - 1.1) LVIDd: 3.9 cm (3.9 - 5.3) LVPWd: 1.2 cm (0.6 - 1.1) IVSs: 1.3 cm LVIDs: 2.1 cm LVPWs: 1.3 cm LA Diam: 4.2 cm (2.7 - 3.8) LAESV Index (A-L): 33.48 ml/m Ao Diam: 2.4 cm (2.0 - 3.7) AV Cusp: 1.7 cm (1.5 - 2.6) MV EXCURSION: 12.842 mm (> 18.000) MV EF SLOPE: 35 mm/s (70 - 150) EPSS: 0.3 cm MV E Leodan: 0.47 m/s MV DecT: 229 ms MV A Leodan: 0.83 m/s MV E/A Ratio: 0.56 RAP: 5.00 mmHg TAPSE: 27.33 mm FINDINGS -------- Sinus rhythm. This was a technically good study. LV size, wall thickness and systolic function are normal, with an EF greater than 55%. The left christian tricular size is normal. The diastolic filling pattern is normal for the age of the patient 14.93. The right ventricle is normal in size. The left atrium is mildly dilated. LA is midly dilated 29-33ml/m2. The right atrial size is normal. The aortic valve is trileaflet, and appears structurally normal. No aortic stenosis or regurgitation. Mild mitral regurgitation is present. No regurgitation noted Right ventricular systolic pressure is normal at < 35 mmHg. There is no pulmonic regurgitation present. The aortic root size is normal. There is no pericardial effusion. CONCLUSIONS -------- 1. LV size, wall thickness and systolic function are normal, with an EF greater than 55%. 2. The left ventricular size is normal. 3. The diastolic filling pattern is normal for the age of the patient 14.93 4. The right ventricle is normal in size. 5. The left atrium is mildly dilated. 6. LA is midly dilated 29-33ml/m2. 7. The right atrial size is normal. 8. Mild mitral regurgitation is present. 9. No regurgitation noted 10. There is no pericardial effusion. CUFF SLITTER: Roopa Restrepo RDCS
--- NOTE | 2020-01-24 13:45 | MR ---
EXAMINATION TYPE: MR angio head/neck wo con DATE OF EXAM: 01/24/2020 HISTORY: CVA COMPARISON: None TECHNIQUE: MRA utilizing [id number] imaging is performed through the [place] and through the bilateral carotid bifurcations. FINDINGS: Carotid/Vascular Structures: There is a three-vessel arch. Vertebral arteries appear codominant. Sign ificant slab artifact is present in the carotid artery study. However, no gross flow gap is evident t o suggest significant carotid artery stenosis. Cervical of [place]: Vertebral basilar system appears normal. Posterior cerebral vasculature is unrema rkable. Internal carotid arteries bifurcate normally into A1 and M1 segments. A2 segments are normal. The anterior communicating artery is patent. Left Posterior communicating artery may be patent. Righ t posterior communicating artery is absent. IMPRESSION: 1. No significant flow-limiting stenosis bilateral carotid bifurcations. Artifact is present in the p ermanent visualization of narrowing of less than 50%. 2. Normal [place]
[2020-01-24 15:23] LABS: Appearance,Urine Clear (Clear); Bilirubin,Urine Negative (Negative); Blood,Urine Trace (Negative); Color,Urine Yellow; Glucose,Urine (UA) Negative (Negative); Ketones,Urine Negative (Negative); Leukocyte Esterase,Urine Negative (Negative); Mucus,Urine Rare /hpf; Nitrite,Urine Negative (Negative); Protein,Urine Negative (Negative); RBC,Urine 4 /hpf (0-5); Specific Gravity,Urine 1.008 (1.001-1.035); Urobilinogen,Urine <2.0 mg/dL (<2.0); WBC,Urine <1 /hpf (0-5)
--- NOTE | 2020-01-24 15:54 | MR ---
EXAMINATION TYPE: MR brain wo con DATE OF EXAM: 01/24/2020 COMPARISON: CT brain 2 days ago and from 2018 HISTORY: Possible CVA. TECHNIQUE: Multiplanar, multisequence imaging of the brain and brainstem is performed without IV cont rast. FINDINGS: Suboptimal study due to patient motion, inability to hold still. Diffusion weighted images demonstrate no evidence of a recent infarct or other diffusion abnormality. There is diffuse ventricular and sulcal prominence slightly greater over the right frontal lobe redem onstrated. Scattered focal areas of T2 hyperintensity throughout the white matter are noted. Stable p rominence of CSF over the lateral aspect of the posterior fossa. Midline structures demonstrate normal morphology. The craniocervical junction appears within normal limits. Normal vascular flow voids are present. The visualized sinuses are clear and the globes are i ntact. IMPRESSION: Fairly moderate diffuse cerebral atrophy with mild chronic small vessel ischemic change. No MRI evidence for a recent infarct.
[2020-01-24 17:17] LABS: Hemoglobin A1C 5.6 % (4.0-6.0)
[2020-01-24 21:18] VITALS: RESP 16
[2020-01-25 08:10] VITALS: BP 112/66; PULSE 55; TEMP 97.8
[2020-01-25] MEDS: FAMOTIDINE 20 MG TAB PO SCH (08:16)
[2020-01-25] MEDS: amLODIPine 5 MG TAB PO SCH (08:16)
[2020-01-25] MEDS: ASPIRIN 81 MG PO SCH (08:16)
[2020-01-25] MEDS: CLOPIDOGREL 75 MG TAB PO SCH (08:16)
[2020-01-25] MEDS: ATORVASTATIN 40 MG TAB PO SCH (08:16)
[2020-01-25] MEDS: CITALOPRAM HYDROBROMIDE 20 MG TAB PO SCH (08:16)
[2020-01-25] MEDS: MULTIVITAMINS, THERA 1 EACH TAB PO SCH (08:16)
[2020-01-25] MEDS: HEPARIN SODIUM,PORCINE 5,000 UNIT/ML 1 ML VIAL SQ SCH (08:17)
[2020-01-25] MEDS: NITROGLYCERIN EXTENDED RELEASE 6.5 MG CAPSULE.ER PO SCH (08:17)
[2020-01-25 10:15] LABS: Basophils # (A) 0.1 k/uL (0-0.2); Basophils % (A) 1 %; Eosinophils # (A) 0.5 k/uL (0-0.7); Eosinophils % (A) 7 %; HCT 40.5 % (39.0-53.0); HGB 13.3 gm/dL (13.0-17.5); Lymphocytes # (A) 1.4 k/uL (1.0-4.8); Lymphocytes % (A) 20 %; MCH 31.9 pg (25.0-35.0); MCHC 32.8 g/dL (31.0-37.0); MCV 97.5 fL (80.0-100.0); Mean Platelet Volume 6.9; Monocytes # (A) 0.4 k/uL (0-1.0); Monocytes % (A) 5 %; Neutrophils # (A) 4.5 k/uL (1.3-7.7); Neutrophils % (A) 65 %; Platelet Count 342 k/uL (150-450); RBC 4.16 m/uL (4.30-5.90); RDW 13.8 % (11.5-15.5); WBC 6.8 k/uL (3.8-10.6)
[2020-01-25 10:31] LABS: Albumin 3.2 g/dL (3.5-5.0); Calcium 8.4 mg/dL (8.4-10.2); Potassium 3.9 mmol/L (3.5-5.1); Total Bilirubin 0.4 mg/dL (0.2-1.3); Total Protein 6.2 g/dL (6.3-8.2)
--- NOTE | 2020-01-25 11:08 | P.PN ---
Subjective Progress Note Date: 01/25/20 89 years old male patient of Dr. 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 It appears patient has been able to make his own decision but brother and sister helps make decision for the patient as it takes longer for the patient to process the information. Spoke to the sister in length over the phone, patient is functionally active and uses no aids like cane or weight walker at home. Patient sister has noted increased weakness in his right arm and right lower extremity and having difficulty making a fist or hold anything with his right hand. Patient is not able to provide a good history and no family members at bedside it is difficult to assess if patient has any remnant weakness from polio. On speaking to the sister it appears that polio had not affected any of his extremity and patient is very functionally independent at home. Family members coming intermittently to watch over him. Since patient was not able to come out of bed by himself the sister got suspicion and brought the patient to the ER. . He denies any difficulty with walking or any falls at home. On evaluation patient has a temp of 98.2 pulse 75 respiratory rate 17 and blood pressure 127/70 with oxygen saturation 96% on 2 L. On assessment of patient's blood work from yesterday patient had a leukocyte of 11.2 which improved to 9.2 today. Hemoglobin is 15.3 improved to 12.9 appears to be secondary to hemodilution. Platelets 351 improved to 90. Sodium was 134 decreased to 132. Creatinine was 1.12 elevated BUN of 21 improved to creatinine of 0.87. ProBNP was 273. UA was negative for any infection. Chest x-ray did show some congestion and infiltrates concerning for CHF exacerbation. Patient denies any coughing or shortness of breath and is currently on room air on examination. Patient did receive 2 L of IV fluid in the ER. Further IV fluids were discontinued to prevent overload of fluids. Due to concern of weakness in the right upper extremity neurology is consulted, MRI and MRA of the head ordered. Echocardiogram ordered brain CT done in the ER suggestive of cerebral atrophy more prominent in the right frontoparietal region with no acute intracranial change. Patient's sister is unaware why patient is on Plavix, states he had some confusion 4 years ago but no documented history of stroke pre sent 01/23: Patient evaluated at the bedside. Patient still has increased weakness in his right arm and right lower extremity. Neurology is on consult, carotid ultrasound was completed and showed no significant stenosis, echocardiogram shows ejection fraction of 55%, mild mitral regurgitation, no pericardial effusion. Cervical spine x-ray was ordered and showed severe multilevel degenerative disc disease most marked at levels C3 through C6 with multilevel foraminal encroachment. MRI is pending, will continue on Plavix. Will repeat UA with reflex to culture since first UA showed +1 Ketones, trace blood and RBC of 6. Vital signs are stable ,he's afebrile 98.6, heart rate 57, respiratory 14, blood pressure 108/63, 94% on room air. 01/24: patient was seen and examined resting eating breakfast. MRI of the brain revealed fairly moderate diffuse cerebral atrophy with mild chronic small vessel ischemic change no evidence for recent infarct. plan to stop Plavix. we'll consult Dr. Walker for severe multilevel degenerative disc disease C3 through C6. otherwise patient is doing well and may possibly be discharged home later today after seen by ortho. Exam - Constitutional General appearance: Keeps his eyes down, answers yes to every question cooperative, no acute distress, obese - EENT Eyes: anicteric sclerae, PERRLA, normal appearance ENT: Hard of hearing - Neck Neck: no lymphadenopathy, normal ROM, no other, no rigidity, no stridor, no thyromegaly - Respiratory Respiratory: bilateral: CTA, negative: diminished lung sounds - Cardiovascular Rhythm: regular Heart sounds: normal: S1, S2 Abnormal Heart Sounds: 2 / 6 systolic murmur, no diastolic murmur, no rub, no S3 Gallop, no S4 Gallop, no click, no other - Gastrointestinal General gastrointestinal: normal bowel sounds, soft nontender - Integumentary Integumentary: no rash - Neurologic Neurologic: Facial droop noted on the right with no change, hand corporate associate attorney reduced on the right, patient is unable to make a fist on the right, is able to lift on his extremity denies any numbness - Musculoskeletal Musculoskeletal: gait unsteady , strength equal bilaterally - Psychiatric Psychiatric: A&O x's 1, unable to tell month or year, is able to tell where he is on multiple attempts .appropriate affect Objective - Vital Signs Vital signs: Vital Signs Temp 97.8 F 01/25/20 08:08 Pulse 55 L 01/25/20 08:08 Resp 16 01/25/20 08:08 BP 112/66 01/25/20 08:08 Pulse Ox 93 L 01/25/20 08:08 Intake & Output 01/24/20 01/25/20 01/25/20 18:59 06:59 18:59 Other: Voiding Method Toilet Toilet Toilet Diaper Diaper Diaper Incontinent Incontinent Incontinent # Voids 1 - Labs CBC & Chem 7: 01/25/20 08:58 01/25/20 08:58 Labs: Abnormal Lab Results - Last 24 Hours (Table) 01/24/20 01/25/20 01/25/20 Range/Units 14:09 08:58 08:58 RBC 4.16 L (4.30-5.90) m/uL Sodium 136 L (137-145) mmol/L Glucose 108 H (74-99) mg/dL Total Protein 6.2 L (6.3-8.2) g/dL Albumin 3.2 L (3.5-5.0) g/dL Urine Blood Trace H (Negative) Urine Mucus Rare H (None) /hpf Assessment and Plan Assessment: Plan: #1 Generalized weakness with loss of corporate associate attorney on the right upper extremity. Right lower extremity weakness improved. We will patient on aspirin and atorvastatin. MRI head revealed no acute infarct, plan to stop Plavix. Neurology on the case. #2 hypertension controlled on Norvasc 5 mg by mouth daily #3 [address]lipidemia [address] sim[address]atin place patient on atorvastatin 40 milligrams by mouth daily #4 constipation stool softeners can be started #5 mild cognitive impairment patient's baseline is a very young age. Family helps make a decision for the patient. No power of corporate associate attorney present. #6 acute kidney injury likely dehydration improved with IV fluids. Chest x-ray with mild congestion only for the IV fluids #7 anemia normocytic normochromic likely hemodilution. stable #8 mild protein malnutrition, currently on regular diet continuing ensure with meals #9 history of incarceration of the ventral hernia repaired by Dr. Forman #10 DVT prophylaxis with heparin every 12 #11 GI prophylaxis with Pepcid 20 mg by mouth daily #12 CODE STATUS full code discussed with sister #13 Generalized debility PT/OT consult placed Patient will be admitted to the hospital for minimum of 2 night stay. Discharge plan: possibly home later today after evaluated by after Andriy. Impression and plan of care have been directed as dictated by the signing physician. Pooja Barcenas nurse practitioner acting as scribe for signing physician.
--- NOTE | 2020-01-25 13:00 | P.CNOR ---
History of Present Illness - [facility] Consult date: 01/25/20 Requesting physician: Jermaine Parish Consult reason: other (Right upper extremity weakness) History of present illness: Patient is a very pleasant 89-year-old male who is seen examined the bedside after consultation and please by Dr. Parish for right upper extremity weakness. Patient originally presented to the emergency department on 01/22/2020 with generalized weakness ongoing for 2-3 days prior to his presentation. Documentation states patient had right upper extremity and right lower extremity weakness. He was having difficulty making a fist. There is also documentation of a facial droop. He underwent further workup to rule out stroke or intracranial abnormality. Patient does have a history of polio as a child without re-residual weakness. Prior to the examination at the bedside x-rays of the cervical spine have been performed. Patient states at the bedside he is not currently experiencing any upper extremity radiculopathy or weakness bilaterally. He states he was experiencing numbness in the right upper extremity but states it has improved since his admission. He is able to perform active range of motion bilateral upper extremities at the bedside. He denies any cervical pain. Nursing states patient has been able to ambulate with assistance. Patient's plan for discharge home today with his family. Prior to his presentation to the hospital and reported patient is independent and ambulates at home without difficulty. 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 Document patient states patient is on Plavix but the patient is unsure why he is on this medication. Past Medical History Past Medical History: CVA/TIA, Hypertension, Neurologic Disorder Additional Past Medical History / Comment(s): polio History of Any Multi-Drug Resistant Organisms: None Reported Past Surgical History: Cholecystectomy Additional Past Surgical History / Comment(s): bowel x2 Past Anesthesia/Blood Transfusion Reactions: No Reported Reaction Additional Past Anesthesia/Blood Transfusion Reaction / Comm: pt taking nitro bid Past Psychological History: No Psychological Hx Reported Additional Psychological History / Comment(s): Patient lives alone, sister visits in the morning, brother visits at night sister does grocery shopping for the patient Smoking Status: Never smoker Past Alcohol Use History: None Reported Past Drug Use History: None Reported - Past Family History Father Family Medical History: CVA/TIA Mother Family Medical History: Myocardial Infarction ([place]) Medications and Allergies Home Medications Medication Instructions Recorded Confirmed Type Citalopram Hydrobromide [CeleXA] 20 mg PO DAILY 04/15/14 01/22/20 History Nitroglycerin Extended Release 6.5 mg PO TID 04/15/14 01/22/20 History [Nitro-Bid] Simvastatin [Zocor] 20 mg PO DAILY 04/15/14 01/22/20 History Multivitamins, Thera [Multivitamin 1 tab PO DAILY 08/12/17 01/22/20 History (formulary)] Aspirin [Adult Low Dose Aspirin EC] 81 mg PO DAILY 08/22/17 01/22/20 History Docusate [Colace] 100 mg PO BID #20 capsule 08/27/17 01/22/20 Rx amLODIPine [Norvasc] 5 mg PO DAILY 01/22/20 01/22/20 History Allergies Allergy/AdvReac Type Severity Reaction Status Date / Time No Known Allergies Allergy Verified 01/22/20 16:10 Physical Examination Physical exam: Patient is awake, alert, and oriented 3 Vital signs stable Good chest excursion with deep inspiration and expiration Abdomen soft nontender Examination of the cervical spine reveals skin is intact with no abrasions, lacerations, or bruises; no erythema, purulence or signs of infection Full range of motion of the cervical spine with adequate flexion, extension, and bilateral rotation Cloth Grader strength, thumb strength, interosseous strength, biceps strength, triceps strength, and shoulder strength positive sustained bilaterally Patient is able to perform active range of motion bilateral upper extremities without difficulty No specific weakness with testing against resistance of the bilateral upper extremities No upper extremity hyperreflexia bilaterally Chicas's sign negative upper extremity bilaterally No visible evidence of right-sided facial droop Results Pertinent studies: X-rays of the cervical spine taken on 01/24/2020: Severe degenerative disc disease C3-4, C4-5, and C5-6 of anterior osteophytic spurring; C6-7 degenerative disc disease; multilevel posterior osteophytic spurring; no obvious spondylolisthesis - Labs Labs: Abnormal Lab Results - Last 24 Hours (Table) 01/24/20 01/25/20 01/25/20 Range/Units 14:09 08:58 08:58 RBC 4.16 L (4.30-5.90) m/uL Sodium 136 L (137-145) mmol/L Glucose 108 H (74-99) mg/dL Total Protein 6.2 L (6.3-8.2) g/dL Albumin 3.2 L (3.5-5.0) g/dL Urine Blood Trace H (Negative) Urine Mucus Rare H (None) /hpf H & H 01/22/20 01/23/20 01/24/20 Range/Units 12:55 10:01 07:38 Hgb 15.3 12.9 L 12.6 L (13.0-17.5) gm/dL Hct 46.3 38.9 L 37.7 L (39.0-53.0) % 01/25/20 Range/Units 08:58 Hgb 13.3 (13.0-17.5) gm/dL Hct 40.5 (39.0-53.0) % Coagulation 01/22/20 Range/Units 12:55 INR 1.0 (<1.2) Result Diagrams: 01/25/20 08:58 01/25/20 08:58 Assessment and Plan Assessment: Assessment: Severe cervical degenerative disc disease at C3-4, C4-5, and C5-6 C6-7 degenerative disc disease Cervical anterior osteophytic spurring Right upper extremity and lower extremity weakness at admission with improvement History of polio as a child age 4 History of CVA/TIA (1) Degenerative cervical disc Current Visit: Yes Status: Acute Code(s): M50.30 - OTHER CERVICAL DISC DEGENERATION, UNSP CERVICAL REGION SNOMED Code(s): 13322804 (2) Osteophyte determined by x-ray Current Visit: Yes Status: Acute Code(s): M25.70 - OSTEOPHYTE, UNSPECIFIED JOINT SNOMED Code(s): 776392355146437 (3) Polio Current Visit: Yes Status: Acute Code(s): A80.9 - ACUTE POLIOMYELITIS, UNSPECIFIED SNOMED Code(s): 314528242 (4) History of CVA (cerebrovascular accident) Current Visit: Yes Status: Acute Code(s): Z86.73 - PRSNL HX OF TIA (TIA), AND CEREB INFRC W/O RESID DEFICITS SNOMED Code(s): 738362514 (5) Weakness Current Visit: Yes Status: Acute Code(s): R53.1 - WEAKNESS SNOMED Code(s): 00832460 Plan: Plan: 1. Patient has been discussed in detail Dr. Joni Walker. Imaging has been reviewed by Dr. Joni Walker and myself. After physical examination of the patient, further discussion with the patient, and reviewing of imaging, we are currently planning to continue conservative treatment at this time in regards to his cervical spine. At presentation to the emergency department he was experiencing some right-sided facial droop along with right upper extremity lower extremity weakness. All of the symptoms have appeared to have improved during his admission. He is able to perform active range of motion bilateral upper extremities without difficulty. He is not currently experiencing any upper extremity radiculopathy symptoms bilaterally. He does have significant changes at his cervical spine at C3-4, C4-5, and C5-6. At this time given his improvement, we would not plan for further imaging or treatment during his admission to the hospital. Patient is cleared for discharge from an orthopedic spine standpoint. Following discharge we will plan to have the patient follow up with Jose A Villarreal PA-C or Dr. Joni Walker in approximately 2-3 weeks for further evaluation. If he has an exacerbation of his symptoms following discharge, we may plan for MRI imaging of his cervical spine. 2. Patient will continue be seen by medicine other medical providers during his admission Time with Patient: Greater than 30 (Including obtaining history, physical examination, reviewing of imaging, and dictation.)
--- NOTE | 2020-01-26 08:07 | P.DS ---
Providers Date of admission: 01/23/20 12:13 Expected date of discharge: 01/25/20 (If ok with Dr Walker ) Attending physician: Jermaine Parish Consults: 01/23/20 12:14 Consult Physician Routine Consulting Provider: Luis Browning Consult Reason/Comments: possible stroke Do you want consulting provider notified?: Yes 01/25/20 08:18 Consult Physician Routine Consulting Provider: Delmy Walker Consult Reason/Comments: Cervical stenosis Do you want consulting provider notified?: Yes Primary care physician: [facility] Course: 89 years old male patient of Dr. 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 It appears patient has been able to make his own decision but brother and sister helps make decision for the patient as it takes longer for the patient to process the information. Spoke to the sister in length over the phone, patient is functionally active and uses no aids like cane or weight walker at home. Patient sister has noted increased weakness in his right arm and right lower extremity and having difficulty making a fist or hold anything with his right hand. Patient is not able to provide a good history and no family members at bedside it is difficult to assess if patient has any remnant weakness from polio. On speaking to the sister it appears that polio had not affected any of his extremity and patient is very functionally independent at home. Family members coming intermittently to watch over him. Since patient was not able to come out of bed by himself the sister got suspicion and brought the patient to the ER. . He denies any difficulty with walking or any falls at home. On evaluation patient has a temp of 98.2 pulse 75 respiratory rate 17 and blood pressure 127/70 with oxygen saturation 96% on 2 L. On assessment of patient's blood work from yesterday patient had a leukocyte of 11.2 which improved to 9.2 today. Hemoglobin is 15.3 improved to 12.9 appears to be secondary to hemodilution. Platelets 351 improved to 90. Sodium was 134 decreased to 132. Creatinine was 1.12 elevated BUN of 21 improved to creatinine of 0.87. ProBNP was 273. UA was negative for any infection. Chest x-ray did show some congestion and infiltrates concerning for CHF exacerbation. Patient denies any coughing or shortness of breath and is currently on room air on examination. Patient did receive 2 L of IV fluid in the ER. Further IV fluids were discontinued to prevent overload of fluids. Due to concern of weakness in the right upper extremity neurology is consulted, MRI and MRA of the head ordered. Echocardiogram ordered brain CT done in the ER suggestive of cerebral atrophy more prominent in the right frontoparietal region with no acute intracranial change. Patient's sister is unaware why patient is on Plavix, states he had some confusion 4 years ago but no documented history of stroke present 01/23: Patient evaluated at the bedside. Patient still has increased weakness in his right arm and right lower extremity. Neurology is on consult, carotid ultrasound was completed and showed no significant stenosis, echocardiogram shows ejection fraction of 55%, mild mitral regurgitation, no pericardial effusion. Cervical spine x-ray was ordered and showed severe multilevel degenerative disc disease most marked at levels C3 through C6 with multilevel foraminal encroachment. MRI is pending, will continue on Plavix. Will repeat UA with reflex to culture since first UA showed +1 Ketones, trace blood and RBC of 6. Vital signs are stable ,he's afebrile 98.6, heart rate 57, respiratory 14, blood pressure 108/63, 94% on room air. 01/24: patient was seen and examined resting eating breakfast. MRI of the brain revealed fairly moderate diffuse cerebral atrophy with mild chronic small vessel ischemic change no evidence for recent infarct. plan to stop Plavix. we'll consult Dr. Walker for severe multilevel degenerative disc disease C3 through C6. otherwise patient is doing well and may possibly be discharged home later today after seen by ortho. Discharge diagnosis #1 Generalized weakness with loss of massage therapist on the right upper extremity. #2 hypertension #3 Hyperlipidemia #4 constipation #5 mild cognitive impairment #6 acute kidney injury #7 anemia #8 mild protein malnutrition #9 history of incarceration of the ventral hernia repaired by Dr. Forman Patient Condition at Discharge: Stable Plan - Discharge Summary Discharge Rx Participant: Yes New Discharge Prescriptions: Continue Nitroglycerin Extended Release [Nitro-Bid] 6.5 mg PO TID Citalopram Hydrobromide [CeleXA] 20 mg PO DAILY Simvastatin [Zocor] 20 mg PO DAILY Multivitamins, Thera [Multivitamin (formulary)] 1 tab PO DAILY Aspirin [Adult Low Dose Aspirin EC] 81 mg PO DAILY Docusate [Colace] 100 mg PO BID #20 capsule amLODIPine [Norvasc] 5 mg PO DAILY Discontinued Clopidogrel [Plavix] 75 mg PO DAILY #30 tab Discharge Medication List Citalopram Hydrobromide [CeleXA] 20 mg PO DAILY 04/15/14 [History] Nitroglycerin Extended Release [Nitro-Bid] 6.5 mg PO TID 04/15/14 [History] Simvastatin [Zocor] 20 mg PO DAILY 04/15/14 [History] Multivitamins, Thera [Multivitamin (formulary)] 1 tab PO DAILY 08/12/17 [History] Aspirin [Adult Low Dose Aspirin EC] 81 mg PO DAILY 08/22/17 [History] Docusate [Colace] 100 mg PO BID #20 capsule 08/27/17 [Rx] amLODIPine [Norvasc] 5 mg PO DAILY 01/22/20 [History] Follow up Appointment(s)/Referral(s): Delmy Walker DO [Doctor of Osteopathic Medicine] - 2 Weeks (Patient may follow-up with Jose A Villarreal PA-C or Dr. Joni Walker at [facility] in 2-3 weeks following discharge. ) Angel Del Valle MD [Primary Care Provider] - 1-2 days Patient Instructions/Handouts: Weakness (GEN) Discharge Disposition: HOME SELF-CARE
== END 2020-01-25 14:19 | disposition home or self-care (01) ==
LOC: EC 12:36 → 3NCARDOBS 15:07 → OBSVTOIN 01-23 12:13 → INTOOBSV 01-23 12:13 → UNDODISIN 01-25 14:19
PROVIDERS: ADMIT Internal Medicine Geriatric Medicine; ATTEND Internal Medicine Geriatric Medicine
DX: M50.323 Other cervical disc degeneration at C6-C7 level (principal); M48.02 Spinal stenosis, cervical region; N17.9 Acute kidney failure, unspecified; R29.810 Facial weakness; E44.1 Mild protein-calorie malnutrition; E86.0 Dehydration; R53.1 Weakness; I10 Essential (primary) hypertension; I34.0 Nonrheumatic mitral (valve) insufficiency; I25.2 Old myocardial infarction; E78.5 Hyperlipidemia, unspecified; K59.00 Constipation, unspecified; G31.84 Mild cognitive impairment of uncertain or unknown etiology; D64.9 Anemia, unspecified; Z86.73 Personal history of transient ischemic attack (TIA), and cerebral infarction without residual deficits; Z86.12 Personal history of poliomyelitis; R29.90 Unspecified symptoms and signs involving the nervous system; Z90.49 Acquired absence of other specified parts of digestive tract; Z82.49 Family history of ischemic heart disease and other diseases of the circulatory system; Z79.02 Long term (current) use of antithrombotics/antiplatelets; Z79.82 Long term (current) use of aspirin; Z79.899 Other long term (current) drug therapy
CPT/HCPCS: 96372 ×3; 96360; 96361; 99285; 36415; 93005; 93306; 97161; 97166; 83880 ×2; 80061; 80053 ×4; 84443; 82550; 83605; 83735; 84100; 84484; 85025 ×4; 85610; 85730; 81001 ×2; 83090; 83036; 84145; 72050; 71046; 93880; 70450; 70544; 70547; 70551; G0378 ×4; J1644 ×3